=== PATIENT | female | born 1980 | race African-American/Black ===

== ENCOUNTER 2017-09-30 15:15 | Observation (INO) | payer BC ==
[2017-09-30 15:43] VITALS: BMI 31.3
--- NOTE | 2017-10-01 00:32 | HP ---
DATE OF SCHEDULED SURGERY: 10/05/2017 HISTORY OF PRESENT ILLNESS: Ms. Mata is a 36-year-old -[place] female who is having issue s with menorrhagia and dysmenorrhea and recurrence of uterine fibroids. She has had a previous hyste roscopic myomectomy in the past for symptomatic uterine fibroid of the submucosal cavity. OBSTETRICAL HISTORY: She is a , two vaginal deliveries. She is currently on oral contraceptive s and has been having increasingly heavy bleeding on her menstrual cycles and intermittent spotting. She also has significant degree of dysmenorrhea with minimal response to nonsteroidals. Due to the change in her menstrual cycle and pattern, she underwent ultrasound in my office in 06/2017 showing t he uterus measuring 10.5 x 5.9 x 7.1 cm with a 2.9 anterior uterine fibroid and a 3.2 x 2 cm posterio r uterine fibroid. The endometrial lining was 4.61. No adnexal masses were seen. Her Pap smear was negative with HPV negativity on 2017. PAST SURGICAL HISTORY: Noted hysteroscopic myomectomy along with appendectomy. She had a breast red uction. PAST MEDICAL HISTORY: Otherwise, negative. ALLERGIES: She has allergy to PENICILLIN causing rash and hives. SOCIAL HISTORY: She is non-smoker, minimal alcohol use. She is . FAMILY HISTORY: Noncontributory. PHYSICAL EXAMINATION: VITAL SIGNS: Her blood pressure is 120/80, weight 205, height 5 feet 7 inches, BMI 32.1, pulse regul ar at 88, respirations were 18. HEENT: Within normal limits. CHEST: Clear to auscultation. HEART: Regular rate and rhythm. S1, S2 heart sounds. No murmurs, rubs or gallops. ABDOMEN: Soft, nontender, nondistended with no palpable masses. PELVIC: Vulva and vagina had no lesions. Cervix had no lesions. Uterus is approximately 8-10 weeks size consistent with uterine fibroids, nontender. Adnexa were nontender with no masses. EXTREMITIES: Nontender with full range of motion. ASSESSMENT: This is a 36-year-old -[place] female, with recurrent uterine fibroids wit h menorrhagia, dysmenorrhea, unresponsive to oral contraceptives and nonsteroidals. She desired defi nitive surgical therapy. PLAN: Plan is for robotic total laparoscopic hysterectomy with bilateral salpingectomy. Plan for ov thierno preservation as long as there is no evidence of any disease in the ovaries. Risks and benefits of procedure were discussed in detail. She is set for surgery on 10/05/2017.
[2017-10-05] MEDS ORDERED: Levofloxacin 500 mg/D5W 100 ml Premix Bag ONE (09:56)
[2017-10-05] MEDS ORDERED: Famotidine/PF 20 mg/2ml Vial ONE (09:56)
[2017-10-05] MEDS ORDERED: Clindamycin/D5W 900 mg/50 ml Premix Bag ONE (09:56)
[2017-10-05] MEDS ORDERED: Gabapentin 300 MG CAP ONE (09:56)
[2017-10-05] MEDS ORDERED: CeleCOXIB 100 MG CAP ONE (09:56)
[2017-10-05] MEDS ORDERED: Dexamethasone 4 mg/ml Vial ONE (10:33)
[2017-10-05] MEDS ORDERED: diphenhydrAMINE 50 MG/ML VIAL ONE (10:33)
[2017-10-05] MEDS ORDERED: Glycopyrrolate 0.2 MG/ML 5 ML SYRINGE ONE (12:02)
[2017-10-05] MEDS ORDERED: Lidocaine 1% PF 5 ML VIAL ONE (12:02)
[2017-10-05] MEDS ORDERED: Ondansetron HCl/PF 4 MG/2 ML Vial ONE (12:02)
[2017-10-05] MEDS ORDERED: Metoclopramide HCl 10 MG/2 ML VIAL ONE (12:02)
[2017-10-05] MEDS ORDERED: PROPOFOL 200 MG/20 ML VIAL ONE (12:02)
[2017-10-05] MEDS ORDERED: PHENYLEPHRINE-NS 100 MCG/ML 10 ML SYRINGE ONE (12:02)
[2017-10-05] MEDS ORDERED: Ketorolac Tromethamine 30 MG/ML VIAL ONE (12:02)
[2017-10-05] MEDS ORDERED: Fentanyl 250 MCG/5 ML VIAL ONE (12:38)
[2017-10-05] MEDS ORDERED: Bupivacaine HCl 0.5%/Epinephrine 1:200,000/PF 30 ml Vial ONE (12:45)
[2017-10-05] MEDS ORDERED: Ondansetron HCl/PF 4 MG/2 ML Vial IVP PRN ×2 (15:50→17:10)
[2017-10-05] MEDS ORDERED: Promethazine HCl 25 MG/ML VIAL IM PRN ×2 (15:50→17:10)
[2017-10-05] MEDS ORDERED: Promethazine HCl 25 MG/ML VIAL SLOW IVP PRN (15:50)
[2017-10-05] MEDS ORDERED: Fentanyl 100 MCG/2 ML VIAL ONE (15:56)
[2017-10-05] MEDS ORDERED: Zolpidem Tartrate 5 MG TAB PO PRN (17:10)
[2017-10-05] MEDS ORDERED: Bisacodyl 10 MG SUPP PR PRN (17:10)
[2017-10-05] MEDS ORDERED: traMADol HCl 50 MG TAB PO PRN ×2 (17:10)
[2017-10-05] MEDS ORDERED: diphenhydrAMINE 25 MG CAP PO PRN (17:10)
[2017-10-05] MEDS ORDERED: Simethicone Chewable 80 MG TAB PO PRN (17:10)
[2017-10-05] MEDS: Lactated Ringer's 1,000 ML IV SCH (17:59)
[2017-10-05] MEDS: Ketorolac Tromethamine 30 MG/ML VIAL IVP SCH (19:32)
[2017-10-05] MEDS: Acetaminophen 1,000 MG in Premix Bag 1 BAG IVPB SCH (20:38)
--- NOTE | 2017-10-05 21:41 | OP ---
DATE OF PROCEDURE: 10/05/2017 PREOPERATIVE DIAGNOSIS: 36-year-old -[place] female with symptomatic 10 to 12-week uterine f ibroids with menorrhagia, dysmenorrhea. POSTOPERATIVE DIAGNOSIS: 36-year-old -[place] female with symptomatic 10 to 12-week uterine fibroids with menorrhagia, dysmenorrhea. PROCEDURE PERFORMED: Robotic total laparoscopic hysterectomy and bilateral salpingectomy. SURGEON: Leana Morley MD SAIL CUTTER SURGEON: Debbi Proctor MD ANESTHESIA: General endotracheal. ESTIMATED BLOOD LOSS: 50 mL. COMPLICATIONS: None. COUNTS: Correct x2. ANTIBIOTICS: Clindamycin 900 mg IV. The patient had received Levaquin, but had reaction to this, fo r which the infusion was stopped. She has PENICILLIN allergy. FINDINGS: 1. Normal-appearing bilateral fallopian tubes and ovaries. 2. Uterus with 10 to 12-week uterine fibroids, subserosal and intramural noted. 3. Bladder was watertight to backfilling distension of over 300 mL of normal saline post procedure a nd bilateral ureteral peristalsis were visualized post procedure. DISPOSITION: To recovery room, stable. DESCRIPTION OF OPERATIVE PROCEDURE: The patient previously received informed consent in regard to [facility]. She was taken back to the operating room where she received a general endotracheal anesthetic agent without complications. She was placed in dorsal lithotomy position with the use of Darrion stir rups, prepped and draped in usual sterile fashion. At this time, a side-arm speculum was placed in t he vagina. Anterior lip of the cervix was grasped with single-tooth tenaculum and the uterus sounded to 10 cm and a size 8-cm SKYLER uterine manipulator with 4.0-cm cervical cup was placed in the usual f ashion. Tenaculum and speculum were then removed. A Samayoa catheter had also been placed. Attention was then turned to the abdomen, where perspective trocar sites were infiltrated with 0.5% M arcaine with epinephrine. A 10-mm supraumbilical incision was made and the Veress needle was entered into the abdominal cavity. The patient pressure was noted to be less than 5 mm. Abdomen was insuff lated to patient pressure of 15. Approximately 4 liters of carbon dioxide gas was infused. The Krystina ss needle was removed. A size 12-mm trocar was then placed in the supraumbilical incision and the ro botic laparoscope was introduced through the trocar sleeve confirming proper entry. At this time, bi lateral lower quadrant 8-mm robotic trocars were placed under laparoscopic guidance along with a righ t upper quadrant 11-mm clinical research assistant port. The patient was placed in Trendelenburg position and then the robot was docked in usual fashion. I then proceeded to carry out the surgery from the operative con sole while my assistants remained at the bedside. The uterus was elevated by my clinical research assistant. The righ t fallopian tube was grasped. The mesosalpinx under fimbria was then cauterized with bipolar fenestr ated cautery and the monopolar scissor was utilized to incise over the mesosalpinx border and the rig ht fallopian tube was removed through the right upper quadrant. The right uterine ovarian ligament w as then coagulated and transected with bipolar fenestrated cautery and monopolar scissors with serial coagulation and transection until the right round ligament was reached. It was coagulated and trans ected and the anterior leaf of the broad ligament was entered. The vesicouterine peritoneum was inci sed in a layering technique. This allowed for both sharp and blunt dissection dropping the bladder a traumatically past the cervical vaginal angle, which was delineated by the impression of the cervical cup from manipulator. The right uterine vessels were skeletonized in the internal cervical os regio n and then they were coagulated in internal cervical os region. The left fallopian tube was then gra sped by my clinical research assistant. The mesosalpinx under the fimbria was cauterized with bipolar fenestrated caut noelle. This was transected. Serial coagulations of mesosalpinx under left fallopian tube was carried out with bipolar fenestrated cautery until the left fallopian tube was reached to the cornua area of the uterus. This was coagulated and then the fallopian tube was then removed through the right upper quadrant clinical research assistant port. The left uterine-ovarian ligament was then coagulated with bipolar fenestr ated cautery. It was transected with monopolar scissors. Serial coagulation of the broad ligament h ugging close to the uterus was carried out until the left round ligament was reached. It was coagula matt and transected. The anterior leaf of the broad ligament again was entered. The vesicouterine pe ritoneum was incised in a layering technique. The bladder was then atraumatically dissected away fro m the operative site past the cervical vaginal angle. The uterine vessels on the left side were also skeletonized in similar fashion. They were coagulated in the internal cervical os region. At this time, a posterior colpotomy was then made starting at the 6 o'clock position to the 3 o'clock and 6 o 'clock to 9 o'clock position over the indentation of the cervical cup. The anterior colpotomy was th en completed starting from 12 to 3 and 12 to 9 o'clock. The vessels at the 3 and 9 o'clock positions and the uterine vessels were coagulated at this time securing hemostasis. This uterine specimen was then removed through the vaginal vault and it remained there to continue pneumoperitoneum. The mono polar scissors were switched out to a Huey needle [id number] tank driver and then a Stratafix suture was brought in t hrough the right upper quadrant clinical research assistant port. The vaginal cuff was then closed in full-thickness c losure starting at the right angle working towards the left angle and back towards the midline. The areas of bleeding prior to this on the cuff line had been made hemostatic with bipolar fenestrated ca utery. The pelvis was irrigated and suctioned. Pedicle sites were then again visualized and hemosta sis was confirmed. The bladder was backfilled with over 300 mL distention of saline with no evidence of leak, and bilateral ureteral peristalsis were visualized along the pelvic sidewalls. Pelvis agai n was inspected. Hemostasis was confirmed. The robot was undocked. The trocars were removed and ex cess carbon dioxide gas had been released from the abdomen. A fascial stitch of 0 Vicryl suture in f [id number] fashion was placed in the umbilical defect and the remainder of the trocar sites were closed with 4-0 Monocryl suture in subcuticular fashion with Dermabond. A sponge stick was placed in the vaginal vault confirming hemostasis vaginally. A Samayoa catheter had been attached and clear uri ne was draining from the [place]ay[place]. The patient was awakened from anesthesia, transferred to recovery ro om in stable condition.
[2017-10-06] MEDS: Ketorolac Tromethamine 30 MG/ML VIAL IVP SCH ×2 (02:19→06:37)
[2017-10-06] MEDS: Acetaminophen 1,000 MG in Premix Bag 1 BAG IVPB SCH ×2 (02:22→06:36)
[2017-10-06] MEDS: Lactated Ringer's 1,000 ML IV SCH ×2 (02:34→09:16)
[2017-10-06 06:09] LABS: Hemoglobin 12.1 g/dL (12.0-16.0); Mean Corpuscular HGB CONC 33.8 g/dL (32.0-36.0); Mean Platelet Volume 6.5 fL (7.4-10.4); Platelet Count 355 thou/uL (130-400); RBC Distribution Width 11.5 % (11.5-14.5); Red Blood Cell (RBC) Count 4.04 mill/uL (4.20-5.40); White Blood Cell (WBC) Count 12.6 thou/uL (4.8-10.8)
--- NOTE | 2017-10-06 08:12 | DIS ---
DATE OF ADMISSION: 10/05/2017 DATE OF DISCHARGE: 10/06/2017 DIAGNOSES: Symptomatic uterine fibroids with menorrhagia, dysmenorrhea, unresponsive medical managem ent. PROCEDURE PERFORMED: Robotic total laparoscopic hysterectomy and bilateral salpingectomy. SUMMARY OF HOSPITAL COURSE: Ms. Mata is a 36-year-old -[place] female with a previous his tory of hysteroscopic myomectomies for menorrhagia in the past. She has recurrence of her uterine fi broids, menorrhagia and dysmenorrhea. She was on oral contraceptives and had continued heavy bleedin g and severe dysmenorrhea and desired definitive surgical therapy. She underwent robotic total lapar oscopic hysterectomy on 10/05/2017. Postoperatively, she has done well. Her vital signs have remain ed stable. She is tolerating a regular diet. She is ambulating, voiding without difficulty. She abbasi d a postoperative day #1, hematocrit of 35.9%. Her pain is well controlled on oral nonsteroidals and minimal Ultram narcotic use. Pathology is pending at time of discharge summary. It will be followe d up when available. Patient will be discharged home. She has a followup 2 and 6 weeks postoperativ christian. Her discharge medications will be [id number] ibuprofen 400-600 mg q.4 hours as needed for pain, and Ultram 50 mg p.o. q.6 hours p.r.n. pain.
[2017-10-06 08:15] VITALS: BP 111/62; TEMP 98
== END 2017-10-06 09:55 | disposition home or self-care (01) ==
LOC: SURG A 10-05 09:38 → INTOOBSV 10-05 09:38 → 3SW 10-05 16:56
PROVIDERS: ADMIT Obstetrics & Gynecology; ATTEND Obstetrics & Gynecology
PROC: 0UT94ZZ Resection of Uterus, Percutaneous Endoscopic Approach (ICD-10-PCS; principal; 2017-10-05)
PROC: 0UT74ZZ Resection of Bilateral Fallopian Tubes, Percutaneous Endoscopic Approach (ICD-10-PCS; 2017-10-05)
PROC: 8E0W4CZ Robotic Assisted Procedure of Trunk Region, Percutaneous Endoscopic Approach (ICD-10-PCS; 2017-10-05)
DX: D25.2 Subserosal leiomyoma of uterus (principal); D25.1 Intramural leiomyoma of uterus; N72 Inflammatory disease of cervix uteri; N88.8 Other specified noninflammatory disorders of cervix uteri; Z79.899 Other long term (current) drug therapy; Z88.0 Allergy status to penicillin; Z88.1 Allergy status to other antibiotic agents
CPT/HCPCS: 36415; 85027; 88307; 96361; 96365; 96374; 96375; 96376; G0378; J0131; J0670; J1100; J1200; J1885; J1956; J2001; J2270; J2405; J2704; J2765; J3010; J3490; S0028

== ENCOUNTER 2017-09-30 15:40 | Outpatient (CLI) | payer BC ==
[2017-09-30 16:47] LABS: Hemoglobin 12.5 g/dL (12.0-16.0); Mean Corpuscular HGB CONC 33.2 g/dL (32.0-36.0); Mean Corpuscular Hemoglobin 29.8 pg (27.0-31.0); Mean Corpuscular Volume 89.7 fL (78.0-98.0); Mean Platelet Volume 6.9 fL (7.4-10.4); Platelet Count 343 thou/uL (130-400); RBC Distribution Width 11.6 % (11.5-14.5); Red Blood Cell (RBC) Count 4.19 mill/uL (4.20-5.40)
[2017-09-30 17:03] LABS: BHCG - Serum Negative (NEGATIVE); Pregs Control Background? CLEAR/WHITE (CLR/WHITE); Pregs Control Bar Appear? YES (CONTROL BAR)
== END 2017-09-30 15:41 | disposition home or self-care (01) ==
LOC: LABBT 15:40
PROVIDERS: ATTEND Obstetrics & Gynecology
DX: Z01.812 Encounter for preprocedural laboratory examination (principal); D25.9 Leiomyoma of uterus, unspecified; N94.6 Dysmenorrhea, unspecified; N92.0 Excessive and frequent menstruation with regular cycle
CPT/HCPCS: 84703; 85027; 86850; 86900; 86901

== ENCOUNTER 2024-03-21 07:50 | Outpatient (CLI) | payer BC | END 2024-03-21 07:51 | disposition home or self-care (01) | LOC: BICMAMMO 07:50 | PROVIDERS: ATTEND Family Medicine | DX: Z12.31 Encounter for screening mammogram for malignant neoplasm of breast (principal); Z98.890 Other specified postprocedural states | CPT/HCPCS: 77063; 77067 ==